=== PATIENT | female | born 1995 | race Two or more races ===

== ENCOUNTER 2019-06-30 14:36 | Emergency (ER) | payer MEDICAID, OTHER ==
[~2019-06-30] VITALS: Ht 157.5 cm; Wt 63.5 kg
[2019-06-30 14:52] VITALS: BP 134/84
[2019-06-30 15:03] LABS: Urine Bacteria NONE SEEN /hpf (None Seen); Urine Blood Negative /uL (Negative); Urine Mucus MANY (None Seen); Urine Specific Gravity 1.035 (1.001-1.035); Urine WBC 36 /hpf (0 - 5)
[2019-06-30 15:25] LABS: Basophils # (auto) 0 uL; Basophils % (auto) 0.3 % (0.0-2.0); Eosinophils # (auto) 0.1 uL; Eosinophils % (auto) 0.6 % (0.0-7.0); Hematocrit 39.4 % (36.0-46.0); Hemoglobin 13.6 g/dL (12.2-16.2); Lymphocytes # (auto) 1.9 uL; Lymphocytes % (auto) 18.3 % (10.0-50.0); Mean Corpuscular Hemoglobin 29.6 pg (28.0-32.0); Mean Corpuscular Hgb Conc. 34.5 g/dL (32.0-36.0); Mean Corpuscular Volume 85.8 fL (80.0-100.0); Monocytes # (auto) 0.6 uL; Monocytes % (auto) 5.8 % (0.0-12.0); Neutrophils # (auto) 7.8 uL; Nucleated Red Blood Cells % 0.1 %; Platelet Count (auto) 326 10^3/uL (140-450); Red Cell Distribution Width 13.2 % (11.8-14.3); White Blood Cell 10.5 10^3/uL (4.4-10.8)
[2019-06-30] MEDS ORDERED: PROMETHAZINE HCL 25 MG/ML 1ML IV ONE (16:00)
[2019-06-30] MEDS ORDERED: SODIUM CHLORIDE 0.9% 1,000 ML IV ONE ×2 (16:00→16:15)
[2019-06-30 16:01] LABS: BUN/Creatinine Ratio 11.6; Calcium 9.6 mg/dL (8.5-10.1)
[2019-06-30] MEDS ORDERED: ONDANSETRON HCL 4 MG/2 ML VIAL IV ONE (18:00)
== END 2019-06-30 18:13 | disposition home or self-care (01) ==
LOC: ER 14:43
DX: O21.8 Other vomiting complicating pregnancy (principal); Z3A.10 10 weeks gestation of pregnancy
CPT/HCPCS: 36415; 80048; 81001; 84702; 85025; 96361; 96374; 96375; 99283; J2405; J2550; J7030

== ENCOUNTER 2020-01-01 01:10 | Observation (INO) | payer MEDICAID ==
[~2020-01-01] VITALS: Ht 157.5 cm; Wt 66.7 kg
[2020-01-01] MEDS ORDERED: LACTATED RINGER'S 1,000 ML IV SCH (01:45)
[2020-01-01] MEDS ORDERED: LACTATED RINGER'S 1,000 ML IV ONE (01:45)
[2020-01-01] MEDS ORDERED: TERBUTALINE SULFATE 1 MG/ML 1ML VIAL SC ONE ×4 (02:30→03:45)
== END 2020-01-01 05:00 | disposition home or self-care (01) | DRG 566 ==
LOC: LDRP 01:10
PROVIDERS: ADMIT Obstetrics & Gynecology; ATTEND Obstetrics & Gynecology
DX: O99.89 Other specified diseases and conditions complicating pregnancy, childbirth and the puerperium (principal); M54.9 Dorsalgia, unspecified; O26.893 Other specified pregnancy related conditions, third trimester; R10.9 Unspecified abdominal pain; Z3A.36 36 weeks gestation of pregnancy
CPT/HCPCS: 71045; 76818; 81002; 94760; 96372; G0378; J3105; 59025; 96365; 96366

== ENCOUNTER 2020-01-19 05:27 | Observation (INO) | payer MEDICAID ==
[2020-01-19] MEDS ORDERED: PREN-96 PO (05:50)
[2020-01-19] MEDS ORDERED: ACET-1156 PO (09:35)
[2020-01-19] MEDS ORDERED: DOXY25TA9 PO (09:35)
[2020-01-19] MEDS ORDERED: FERR-7 PO (09:35)
== END 2020-01-19 06:45 | disposition home or self-care (01) | DRG 861 ==
LOC: LDRP 05:27
PROVIDERS: ADMIT Obstetrics & Gynecology; ATTEND Obstetrics & Gynecology
DX: Z34.90 Encounter for supervision of normal pregnancy, unspecified, unspecified trimester (principal)
CPT/HCPCS: 59025; 81002; G0378

== ENCOUNTER 2020-01-19 09:02 | Inpatient (IN) | payer MEDICAID ==
[~2020-01-19] VITALS: Ht 157.5 cm; Wt 67.6 kg
[~2020-01-19 09:02] MED LIST: PREN-96 PO
[2020-01-19] MEDS ORDERED: LACT. RINGERS/OXYTOCIN 20UNITS 1,000 ML IV SCH ×2 (09:26→19:42)
[2020-01-19] MEDS ORDERED: LIDOCAINE 2%HCL (LOCAL ANESTH.) INJ 20ML MDV ID ONE (09:30)
[2020-01-19] MEDS ORDERED: BUTORPHANOL TARTRATE 2 MG/1 ML VIAL IV PRN (09:30)
[2020-01-19] MEDS ORDERED: CARBOPROST TROMETHAMINE 250 MCG/1ML VIAL IM PRN (09:30)
[2020-01-19] MEDS ORDERED: METHYLERGONOVINE MALEATE 0.2 MG/ML AMP IM PRN (09:30)
[2020-01-19] MEDS ORDERED: FERR-7 PO (09:35)
[2020-01-19] MEDS ORDERED: ACET-1156 PO (09:35)
[2020-01-19] MEDS ORDERED: DOXY25TA9 PO (09:35)
[2020-01-19 10:47] LABS: Basophils # (auto) 0 10 ^3/uL (0-0.2); Basophils % (auto) 0.4 % (0.0-2.0); Eosinophils # (auto) 0 10 ^3/uL (0-0.8); Eosinophils % (auto) 0.3 % (0.0-7.0); Hematocrit 33.2 % (36.0-46.0); Hemoglobin 10.9 g/dL (12.2-16.2); Lymphocytes # (auto) 1.7 10 ^3/uL (0.4-5.4); Lymphocytes % (auto) 14.9 % (10.0-50.0); Mean Corpuscular Hemoglobin 27.3 pg (28.0-32.0); Mean Corpuscular Hgb Conc. 32.8 g/dL (32.0-36.0); Monocytes # (auto) 0.5 10 ^3/uL (0-1.3); Monocytes % (auto) 4.4 % (0.0-12.0); Neutrophils # (auto) 9.1 10 ^3/uL (1.6-8.6); Nucleated Red Blood Cells % 0.1 %; Platelet Count (auto) 253 10^3/uL (140-450); Red Cell Distribution Width 15.2 % (11.8-14.3); White Blood Cell 11.4 10^3/uL (4.4-10.8)
[2020-01-19 10:59] LABS: INR 0.86 (0.9-1.15); Partial Thromboplastin Time 20.8 sec (23.64-32.05)
[2020-01-19 11:03] LABS: Albumin 2.7 g/dL (3.4-5.0); Calcium 8.5 mg/dL (8.5-10.1); Potassium 4.4 mmol/L (3.5-5.1)
[2020-01-19 11:06] LABS: Alcohol, Urine < 3.0 mg/dL (0-5); Amphetamine Screen, Urine NEGATIVE (NEGATIVE); Barbiturate Scree,Urine NEGATIVE (NEGATIVE); Benzodiazephine Screen, Urine NEGATIVE (NEGATIVE); Cannabinoid Screen, Urine NEGATIVE (NEGATIVE); Cocaine Screen, Urine NEGATIVE (NEGATIVE); Opiate Scree,Urine NEGATIVE (NEGATIVE); Phencyclidine Screen, Urine NEGATIVE (NEGATIVE)
[2020-01-19 11:06] LABS: BUN/Creatinine Ratio 9.1; Bilirubin, Total 0.2 mg/dL (0.2-1.0); Total Protein 7.4 g/dL (6.4-8.2)
[2020-01-19] MEDS: LACTATED RINGER'S 1,000 ML IV SCH ×2 (12:08→14:13)
[2020-01-19 13:39] LABS: Urine WBC None Seen /hpf (0 - 5)
[2020-01-19 13:49] LABS: Urine Bacteria NONE SEEN /hpf (None Seen); Urine Blood Negative /uL (Negative); Urine Specific Gravity 1.009 (1.001-1.035)
[2020-01-19] MEDS ORDERED: LIDOCAINE HCL 2 %PF INJ 10ML AMP IJ ONE (14:15)
[2020-01-19] MEDS ORDERED: LIDOCAINE W/ EPINEPHRINE 1 % INJ 30ML IJ ONE (14:15)
[2020-01-19] MEDS ORDERED: ePHEDrine SULFATE 50 MG/ML AMP IV ONE (14:15)
[2020-01-19] MEDS ORDERED: fentaNYL 200mCg/100ml W ROPIVA 100 ML EPI SCH (14:15)
[2020-01-19] MEDS: WITCH HAZEL-GLYCERIN PAD TOP PRN ×2 (14:27→18:41)
[2020-01-19] MEDS: DERMOPLAST 60ML BOTTLE TOP PRN ×2 (14:27→18:41)
[2020-01-19] MEDS: PHISODERM TOP SOLN 240ML BTL TOP PRN ×2 (14:27→18:41)
[2020-01-19] MEDS ORDERED: LACT. RINGERS/OXYTOCIN 20UNITS 500 ML IV ONE (18:42)
[2020-01-19] MEDS ORDERED: ACETAMINOPHEN 325 MG TAB PO PRN (23:30)
[2020-01-20] MEDS: IBUPROFEN 600 MG TAB PO PRN ×4 (00:07→22:23)
[2020-01-20 03:25] VITALS: BP 101/69
[2020-01-20 07:30] VITALS: BP 105/59
[2020-01-20 08:08] LABS: RPR Non Reactive (Non Reactive)
[2020-01-20 10:38] VITALS: BP 101/60
[2020-01-20] MEDS: DOCUSATE CALCIUM 240 MG CAP PO SCH (11:08)
[2020-01-20 14:59] VITALS: BP 106/58
[2020-01-20 18:40] VITALS: BP 107/51
[2020-01-20 23:30] VITALS: BP 116/75
[2020-01-21 03:19] VITALS: BP 118/66
[2020-01-21 06:35] VITALS: BP 103/65
[2020-01-21] MEDS: DOCUSATE CALCIUM 240 MG CAP PO SCH (10:00)
== END 2020-01-21 09:55 | disposition home or self-care (01) | DRG 560 ==
LOC: LDRP 09:02
PROVIDERS: ADMIT Obstetrics & Gynecology; ATTEND Obstetrics & Gynecology
PROC: 10E0XZZ Delivery of Products of Conception, External Approach (ICD-10-PCS; principal; 2020-01-19)
PROC: 0W8NXZZ Division of Female Perineum, External Approach (ICD-10-PCS; 2020-01-19)
PROC: 0KQM0ZZ Repair Perineum Muscle, Open Approach (ICD-10-PCS; 2020-01-19)
PROC: 3E0R3BZ Introduction of Anesthetic Agent into Spinal Canal, Percutaneous Approach (ICD-10-PCS; 2020-01-19)
PROC: 00HU33Z Insertion of Infusion Device into Spinal Canal, Percutaneous Approach (ICD-10-PCS; 2020-01-19)
DX: O70.1 Second degree perineal laceration during delivery (principal); Z11.59 Encounter for screening for other viral diseases; Z37.0 Single live birth; Z3A.39 39 weeks gestation of pregnancy
CPT/HCPCS: 36415; 51702; 59025; 59409; 62282; 80053; 80307; 81001; 84112; 85025; 85610; 85730; 86592; 86850; 86900; 86901; 87340; 94760; 96365; 96366; 96372; G0378; J2590

== ENCOUNTER 2021-08-24 22:49 | Emergency (ER) | payer MEDICAID ==
[~2021-08-24] VITALS: Ht 157.5 cm; Wt 54.4 kg
[~2021-08-24 22:49] MED LIST changes: +FERR-7 PO
[2021-08-24 23:40] LABS: Basophils # (auto) 0.1 10 ^3/uL (0-0.2); Basophils % (auto) 0.7 % (0.0-2.0); Eosinophils # (auto) 0.1 10 ^3/uL (0-0.8); Eosinophils % (auto) 0.7 % (0.0-7.0); Hematocrit 37.9 % (36.0-46.0); Hemoglobin 12.8 g/dL (12.2-16.2); Lymphocytes # (auto) 1.7 10 ^3/uL (0.4-5.4); Lymphocytes % (auto) 19.4 % (10.0-50.0); Mean Corpuscular Hemoglobin 29.2 pg (28.0-32.0); Mean Corpuscular Hgb Conc. 33.9 g/dL (32.0-36.0); Mean Corpuscular Volume 86.3 fL (80.0-100.0); Monocytes # (auto) 0.4 10 ^3/uL (0-1.3); Monocytes % (auto) 4.3 % (0.0-12.0); Neutrophils # (auto) 6.6 10 ^3/uL (1.6-8.6); Neutrophils % (auto) 74.9 % (37.0-80.0); Nucleated Red Blood Cells % 0.1 %; Red Cell Distribution Width 13.8 % (11.8-14.3); White Blood Cell 8.9 10^3/uL (4.4-10.8)
[2021-08-24 23:55] LABS: Albumin 3.4 g/dL (3.4-5.0); BUN/Creatinine Ratio 12.5; Calcium 8.7 mg/dL (8.5-10.1); Potassium 3.8 mmol/L (3.5-5.1)
[2021-08-24 23:58] LABS: Bilirubin, Total 0.2 mg/dL (0.2-1.0); Total Protein 7.7 g/dL (6.4-8.2)
[2021-08-25] MEDS ORDERED: SODIUM CHLORIDE 0.9% 1,000 ML IV ONE (01:00)
[2021-08-25] MEDS ORDERED: ONDANSETRON HCL 4 MG/2 ML VIAL IV ONE (01:00)
[2021-08-25 01:26] LABS: Urine Bacteria NONE SEEN /hpf (None Seen); Urine Blood Negative /uL (Negative); Urine Mucus FEW (None Seen); Urine WBC 7 /hpf (0 - 5)
[2021-08-25 06:20] VITALS: BP 96/62
== END 2021-08-25 06:54 | disposition home or self-care (01) ==
LOC: ER 22:49
DX: O21.0 Mild hyperemesis gravidarum (principal); O23.41 Unspecified infection of urinary tract in pregnancy, first trimester; N39.0 Urinary tract infection, site not specified; Z3A.12 12 weeks gestation of pregnancy
CPT/HCPCS: 36415; 80053; 81001; 84702; 85025; 96361; 96374; 99283; J2405; J7030

== ENCOUNTER → 2022-01-27 | Outpatient (CLI) | payer MEDICAID ==
[2022-01-27 10:26] LABS: Hemoglobin 9.5 g/dL (12.2-16.2); Lymphocytes # (auto) 1.5 10 ^3/uL (0.4-5.4); Mean Corpuscular Hemoglobin 26.3 pg (28.0-32.0); Monocytes # (auto) 0.5 10 ^3/uL (0-1.3); Neutrophils # (auto) 5.6 10 ^3/uL (1.6-8.6); Red Blood Cells 3.62 10^6/uL (4.0-5.20); Red Cell Distribution Width 15.7 % (11.8-14.3)
[2022-01-27 10:29] LABS: Basophils # (auto) 0 10 ^3/uL (0-0.2); Basophils % (auto) 0.5 % (0.0-2.0); Eosinophils # (auto) 0.2 10 ^3/uL (0-0.8); Hematocrit 28.8 % (36.0-46.0); Lymphocytes % (auto) 19.2 % (10.0-50.0); Mean Corpuscular Hgb Conc. 33.2 g/dL (32.0-36.0); Mean Corpuscular Volume 79.4 fL (80.0-100.0); Monocytes % (auto) 5.9 % (0.0-12.0); Neutrophils % (auto) 72.4 % (37.0-80.0); Nucleated Red Blood Cells % 0.2 %; White Blood Cell 7.7 10^3/uL (4.4-10.8)
[2022-01-28 06:07] LABS: RPR Non Reactive (Non Reactive)
== END | disposition home or self-care (01) ==
LOC: LAB 09:40
PROVIDERS: ATTEND Obstetrics & Gynecology
DX: Z34.80 Encounter for supervision of other normal pregnancy, unspecified trimester (principal)
CPT/HCPCS: 36415; 84112; 85025; 86592

== ENCOUNTER 2022-02-17 11:35 | Observation (INO) | payer MEDICAID | END 2022-02-17 13:53 | disposition home or self-care (01) | LOC: LDRP 11:35 | PROVIDERS: ADMIT Obstetrics & Gynecology; ATTEND Obstetrics & Gynecology | DX: O42.92 Full-term premature rupture of membranes, unspecified as to length of time between rupture and onset of labor (principal); Z3A.38 38 weeks gestation of pregnancy | CPT/HCPCS: 59025; 76818; 84112; G0378; Q0114; 81002; 94760 ==

== ENCOUNTER 2022-02-20 18:15 | Inpatient (IN) | payer MEDICAID ==
[~2022-02-20] VITALS: Ht 157.5 cm; Wt 66.2 kg
[2022-02-20] MEDS ORDERED: BUTORPHANOL TARTRATE 2 MG/1 ML VIAL IV PRN ×2 (19:00)
[2022-02-20] MEDS ORDERED: PHISODERM TOP SOLN 240ML BTL TOP PRN (19:00)
[2022-02-20] MEDS ORDERED: DERMOPLAST 60ML BOTTLE TOP PRN (19:00)
[2022-02-20] MEDS ORDERED: LACTATED RINGER'S 1,000 ML IV SCH (19:00)
[2022-02-20] MEDS ORDERED: PROMETHAZINE HCL 25 MG/ML 1ML IV PRN (19:00)
[2022-02-20 19:33] LABS: Basophils # (auto) 0.1 10 ^3/uL (0-0.2); Basophils % (auto) 1.3 % (0.0-2.0); Eosinophils # (auto) 0.1 10 ^3/uL (0-0.8); Eosinophils % (auto) 0.8 % (0.0-7.0); Hematocrit 27.2 % (36.0-46.0); Hemoglobin 9.3 g/dL (12.2-16.2); Lymphocytes # (auto) 1.3 10 ^3/uL (0.4-5.4); Mean Corpuscular Hemoglobin 25.6 pg (28.0-32.0); Mean Corpuscular Hgb Conc. 34.1 g/dL (32.0-36.0); Mean Corpuscular Volume 75.2 fL (80.0-100.0); Monocytes # (auto) 0.5 10 ^3/uL (0-1.3); Monocytes % (auto) 6.2 % (0.0-12.0); Neutrophils # (auto) 6.7 10 ^3/uL (1.6-8.6); Neutrophils % (auto) 76.7 % (37.0-80.0); Nucleated Red Blood Cells % 0.1 %; Red Blood Cells 3.62 10^6/uL (4.0-5.20); Red Cell Distribution Width 16.7 % (11.8-14.3); White Blood Cell 8.8 10^3/uL (4.4-10.8)
[2022-02-20 19:36] LABS: Urine Bacteria NONE SEEN /hpf (None Seen); Urine Blood Negative /uL (Negative); Urine Specific Gravity 1.023 (1.001-1.035); Urine WBC 36 /hpf (0 - 5)
[2022-02-20] MEDS ORDERED: LACT. RINGERS/OXYTOCIN 20UNITS 500 ML IV ONE ×2 (19:45→20:15)
[2022-02-20 19:48] LABS: INR 0.89 (0.9-1.15); Partial Thromboplastin Time 23.8 sec (23.6-33.0)
[2022-02-20 19:52] LABS: Alcohol, Urine < 3.0 mg/dL (0-10); Amphetamine Screen, Urine NEGATIVE (NEGATIVE); Barbiturate Scree,Urine NEGATIVE (NEGATIVE); Benzodiazephine Screen, Urine NEGATIVE (NEGATIVE); Cannabinoid Screen, Urine NEGATIVE (NEGATIVE); Cocaine Screen, Urine NEGATIVE (NEGATIVE); Opiate Scree,Urine NEGATIVE (NEGATIVE); Phencyclidine Screen, Urine NEGATIVE (NEGATIVE)
[2022-02-20 19:53] LABS: Albumin 2.6 g/dL (3.4-5.0); BUN/Creatinine Ratio 11.3; Calcium 8.8 mg/dL (8.5-10.1); Potassium 4.1 mmol/L (3.5-5.1)
[2022-02-20 19:56] LABS: Bilirubin, Total 0.2 mg/dL (0.2-1.0); Total Protein 7.2 g/dL (6.4-8.2)
[2022-02-20] MEDS: WITCH HAZEL-GLYCERIN PAD TOP PRN (23:22)
[2022-02-20] MEDS: LIDOCAINE 2%HCL (LOCAL ANESTH.) INJ 10ml MDV IJ PRN ×2 (23:28→23:29)
[2022-02-20] MEDS ORDERED: ACETAMINOPHEN 325 MG TAB PO PRN (23:45)
[2022-02-20] MEDS ORDERED: ONDANSETRON ODT 4 MG TAB PO PRN (23:45)
[2022-02-21 02:51] VITALS: BP 123/70
[2022-02-21] MEDS: IBUPROFEN 600 MG TAB PO PRN ×3 (04:15→22:37)
[2022-02-21 06:45] VITALS: BP 120/77
[2022-02-21 11:00] VITALS: BP 109/65
[2022-02-21 15:00] VITALS: BP 122/67
[2022-02-21] MEDS: WITCH HAZEL-GLYCERIN PAD TOP PRN (17:19)
[2022-02-21 19:00] VITALS: BP 122/67
[2022-02-21 22:41] VITALS: BP 122/74
[2022-02-22 03:00] VITALS: BP 110/65
[2022-02-22 07:00] VITALS: BP 118/68
[2022-02-22 13:15] VITALS: BP 121/67
[2022-02-23 07:06] LABS: RPR Non Reactive (Non Reactive)
== END 2022-02-22 13:15 | disposition home or self-care (01) | DRG 560 ==
LOC: UNDOADMOB 18:15 → LDRP 18:15 → INTOOBSV 18:50 → OBSVTOIN 18:50 → LDRP 18:58 → UNDODISIN 02-22 13:15 → EDSTATUS 03-08 15:36
PROVIDERS: ADMIT Obstetrics & Gynecology; ATTEND Obstetrics & Gynecology
PROC: 10E0XZZ Delivery of Products of Conception, External Approach (ICD-10-PCS; principal; 2022-02-20)
PROC: 0HQ9XZZ Repair Perineum Skin, External Approach (ICD-10-PCS; 2022-02-20)
DX: O70.0 First degree perineal laceration during delivery (principal); Z37.0 Single live birth; Z20.822 Contact with and (suspected) exposure to COVID-19; Z3A.38 38 weeks gestation of pregnancy
CPT/HCPCS: 36415; 59025; 59409; 80053; 80307; 81001; 81002; 85025; 85610; 85730; 86592; 86850; 86900; 86901; 94760; 96360; 96365; 96366; G0378; J2001; J2590